=== PATIENT | male | born 1995 | race Caucasian/White ===

== ENCOUNTER 2016-09-12 21:34 | Inpatient (IN) | payer OTHER ==
--- NOTE | 2016-09-12 21:59 | HP ---
CIWA Score - CIWA Score Nausea/Vomitin-Mild Nausea/No Vomiting Muscle Tremors: 4-Moderate,w/Arms Extend Anxiety: 4-Mod. Anxious/Guarded Agitation: 4-Moderately Restless Paroxysmal Sweats: 1-Minimal Palms Moist Orientation: 3-Disoriented Date>2 days Tacttile Disturbances: 0-None Auditory Disturbances: 0-None Visual Disturbances: 0-None Headache: 2-Mild CIWA-Ar Total Score: 19 Admission ROS [facility] - HPI Chief Complaint: withdrawal sx Allergies/Adverse Reactions: Allergies Allergy/AdvReac Type Severity Reaction Status Date / Time No Known Drug Allergies Allergy Verified 09/12/16 22:51 powered drink Allergy Mild Rash Uncoded 09/12/16 21:57 History of Present Illness: 21 years old male with long history of alcohol k2 marijuana nicotine dependence , history of asthma, has diabetes ii no treatment, patient has alcohol intoxication 09/11/16 treated in ER [facility] mental illness is admitted to detox Exam Limitations: No Limitations - Ebola screening Have you traveled outside of the country in the last 21 days: No Have you had contact with anyone from an Ebola affected area: No Have you been sick,other than usual withdrawal symptoms: No Do you have a fever: No - Review of Systems Constitutional: Chills, Loss of Appetite, Changes in sleep, Unintentional Wgt. Loss, Unexplained wgt Loss EENT: reports: No Symptoms Reported Respiratory: reports: No Symptoms reported Cardiac: reports: No Symptoms Reported GI: reports: Nausea, Poor Appetite, Poor Fluid Intake, Abdominal cramping : reports: No Symptoms Reported Musculoskeletal: reports: Back Pain (sports injury) Integumentary: reports: No Symptoms Reported Neuro: reports: Seizure (09/11/16 seizure treated in ER k2 related), Tremors Endocrine: reports: No Symptoms Reported Hematology: reports: No Symptoms Reported Psychiatric: reports: Judgement Intact, Mood/Affect Appropiate Other Systems: Reviewed and Negative Patient History - Patient Medical History Hx Anemia: No Hx Asthma: Yes (no treatment) Hx Chronic Obstructive Pulmonary Disease (COPD): No Hx Cancer: No Hx Cardiac Disorders: No Hx Congestive Heart Failure: No Hx Hypertension: No Hx Hypercholesterolemia: No Hx Pacemaker: No HX Cerebrovascular Accident: No Hx Seizures: Yes Hx Dementia: No Hx Diabetes: Yes Hx Gastrointestinal Disorders: No Hx Liver Disease: No Hx Genitourinary Disorders: No Hx Sexually Transmitted Disorders: No Hx Renal Disease (ESRD): No Hx Thyroid Disease: No Hx Human Immunodeficiency Virus (HIV): No Hx Hepatitis C: No Hx Depression: No Hx Suicide Attempt: No Hx Bipolar Disorder: No Hx Schizophrenia: No - Patient Surgical History Past Surgical History: Yes Other Surgical History: colonoscopy 2015 hemodectomy Anesthesia Reaction: No - PPD History Previous Implant?: Yes Documented Results: Negative w/o proof Implanted On Prior R Admission?: No PPD to be Administered?: Yes - Smoking Cessation Smoking history: Current every day smoker Have you smoked in the past 12 months: Yes Aproximately how many cigarettes per day: 20 Cigars Per Day: 0 Hx Chewing Tobacco Use: No Initiated information on smoking cessation: Yes 'Breaking Loose' booklet given: 09/12/16 - Substance & Tx. History Hx Alcohol Use: Yes Hx Substance Use: Yes Substance Use Type: Alcohol, Marijuana Hx Substance Use Treatment: Yes - Substances Abused Alcohol Route: Oral Frequency: Daily Amount used: 8ozx48 beer/ 2pints volka Age of first use: 14 Date of Last Use: 09/11/16 K2 Route: Smoking Frequency: 3-6 times per week Amount used: 4 bags Age of first use: 21 Date of Last Use: 09/11/16 Family Disease History - Family Disease History Family History: Unremarkable Admission Physical Exam [facility] - Physical General Appearance: Yes: Appropriately Dressed, Moderate Distress, Thin, Tremorous, Irritable, Sweating, Anxious HEENTM: Yes: Hearing grossly Normal, Normal ENT Inspection, Normocephalic, Normal Voice Respiratory: Yes: Chest Non-Tender, Lungs Clear, Normal Breath Sounds, No Respiratory Distress, No Accessory Muscle Use Neck: Yes: Supple, Trachea in good position Breast: Yes: Breasts Symetrical Cardiology: Yes: Regular Rhythm, Regular Rate, S1, S2 Abdominal: Yes: Non Tender, Soft Genitourinary: Yes: Within Normal Limits Back: Yes: Normal Inspection Musculoskeletal: Yes: full range of Motion, Gait Steady, Back pain Extremities: Yes: Normal Inspection, Normal Range of Motion, Non-Tender, Tremors Neurological: Yes: Alert, Motor Strength 5/5, Normal Mood/Affect, Normal Response Integumentary: Yes: Warm, Moist Lymphatic: Yes: Within Normal Limits - Diagnostic (1) Alcohol dependence with uncomplicated withdrawal Current Visit: Yes Status: Acute (2) Diabetes mellitus type II, non insulin dependent Current Visit: Yes Status: Chronic Comment: x 1 1/2 years, dietary control (3) Weight loss Current Visit: Yes Status: Acute Comment: glucerna (4) Nicotine dependence Current Visit: Yes Status: Acute Qualifiers: Nicotine product type: cigarettes Substance use status: in withdrawal Qualified Code(s): F17.213 - Nicotine dependence, cigarettes, with withdrawal (5) S/P hemorrhoidectomy Current Visit: Yes Status: Resolved Cleared for Admission S - Detox or Rehab S Level of Care: Medically Managed Detox Regimen/Protocol: Librium
[2016-09-12 22:23] VITALS: BMI 21.1
[2016-09-12] MEDS ORDERED: chlordiazePOXIDE HCL 25 MG CAPSULE PO PRN (22:41)
[2016-09-12] MEDS ORDERED: MENTHOL/PHENOL 1 EACH UD MM PRN (22:41)
[2016-09-12] MEDS ORDERED: IBUPROFEN 400 MG TABLET (FP) PO PRN (22:41)
[2016-09-12] MEDS ORDERED: P-EPHED 60MG/TRIPROLIDI 2.5MG TABLET PO PRN (22:41)
[2016-09-12] MEDS ORDERED: MAG HYDROX/AL HYDROX/SIMETH 30 ML UNIT-DOSE CUP PO PRN (22:41)
[2016-09-12] MEDS ORDERED: LOPERAMIDE HCL 2 MG CAPSULE PO PRN (22:41)
[2016-09-12] MEDS ORDERED: MAGNESIUM CITRATE 300 ML BOTTLE PO PRN (22:41)
[2016-09-12] MEDS ORDERED: hydrOXYzine PAMOATE 50 MG CAPSULE (FP) PO PRN (22:41)
[2016-09-12] MEDS ORDERED: chlordiazePOXIDE HCL 25 MG CAPSULE PO ONE (22:41)
[2016-09-12] MEDS ORDERED: guaiFENesin/D-METHORPHAN HB 10 ML UNIT-DOSE CUPS PO PRN (22:41)
[2016-09-12] MEDS ORDERED: NICOTINE POLACRILEX 4 MG GUM BC PRN (22:41)
[2016-09-12] MEDS ORDERED: MAGNESIUM HYDROX 2400MG/30ML ORAL SUSPENSION 30 ML CUP PO PRN (22:41)
[2016-09-12] MEDS ORDERED: cloNIDine HCL 0.1 MG TABLET PO PRN (22:51)
[2016-09-12] MEDS: chlordiazePOXIDE HCL 25 MG CAPSULE PO SCH (23:03)
[2016-09-13] MEDS: chlordiazePOXIDE HCL 25 MG CAPSULE PO SCH ×4 (05:38→22:11)
--- NOTE | 2016-09-13 09:46 | CONSULT ---
[facility] Psychiatric Consult - Data Date of interview: 09/13/16 Admission source: [facility] Identifying data: First admission to [facility] for this 21 y/o male seeking detox treatment on for alcohol and marijuana (K2) dependence.Patient is single without children,domiciled,unemployed and dependent on his mother for financial support. Substance Abuse History: - Smoking Cessation. Smoking history: Current every day smoker. Have you smoked in the past 12 months: Yes. Aproximately how many cigarettes per day: 20. Cigars Per Day: 0. Hx Chewing Tobacco Use: No. Initiated information on smoking cessation: Yes. 'Breaking Loose' booklet given : 09/12/16. - Substance & Tx. History. Hx Alcohol Use: Yes. Hx Substance Use : Yes. Substance Use Type: Alcohol, Marijuana. Hx Substance Use Treatment: Yes. - Substances Abused. Alcohol. Route: Oral. Frequency: Daily. Amount used: 8ozx48 beer/ 2pints volka. Age of first use: 14. Date of Last Use : 09/11/16. K2. Route: Smoking. Frequency: 3-6 times per week. Amount used: 4 bags. Age of first use: 21. Date of Last Use: 09/11/16. Patient admits to this pattern of substance abuse in this interview. Medical History: Diabetes mellitus,withdrawal-related seizures and a history of hemorrhoidectomy (2015). Psychiatric History: Patient denies. Physical/Sexual Abuse/Trauma History: Patient denies. Mental Status Exam - Mental Status Exam Alert and Oriented to: Time, Place, Person Cognitive Function: Good Patient Appearance: Well Groomed Mood: Nervous, Anxious Affect: Mood Congruent Patient Behavior: Fatigued, Appropriate, Cooperative Speech Pattern: Clear, Appropriate Voice Loudness: Normal Thought Process: Intact, Goal Oriented Thought Disorder: Not Present Hallucinations: Denies Suicidal Ideation: Denies Homicidal Ideation: Denies Insight/Judgement: Fair Sleep: Well Appetite: Good Muscle strength/Tone: Normal Gait/Station: Normal Psychiatric Findings - Problem List ([place] 1, 2,3) (1) Alcohol dependence with uncomplicated withdrawal Current Visit: Yes Status: Acute (2) Nicotine dependence Current Visit: Yes Status: Acute Qualifiers: Nicotine product type: cigarettes Substance use status: in withdrawal Qualified Code(s): F17.213 - Nicotine dependence, cigarettes, with withdrawal (3) Marijuana dependence Current Visit: Yes Status: Acute (4) Diabetes mellitus type II, non insulin dependent Current Visit: Yes Status: Chronic Comment: x 1 1/2 years, dietary control (5) S/P hemorrhoidectomy Current Visit: Yes Status: Resolved - Initial Treatment Plan Initial Treatment Plan: Psychoeducation.Detoxification.Observation.
[2016-09-13 10:08] LABS: MCH 29.1 pg (25.7-33.7); MCHC 33.2 g/dl (32.0-35.9); MEAN CELL VOLUME 87.8 fl (80-96); MEAN PLT VOLUME 9.9 fl (7.5-11.1); PLATELET COUNT 166 K/MM3 (134-434); RDW 13.8 % (11.9-15.9); WHITE BLOOD COUNT 7.1 K/mm3 (4.0-10.0)
[2016-09-13] MEDS: ASPIRIN 81 MG CHEWABLE TABLETS PO SCH (10:10)
[2016-09-13] MEDS: NICOTINE 21 MG/24 HOURS TOPICAL PATCH TD SCH (10:10)
[2016-09-13] MEDS: PRENATAL VITAMINS W/ FOLIC ACID TABLET (FP) PO SCH (10:10)
--- NOTE | 2016-09-13 10:10 | PN ---
[facility] CIWA - CIWA Score Nausea/Vomitin-No Nausea/No Vomiting Muscle Tremors: 4-Moderate,w/Arms Extend Anxiety: 4-Mod. Anxious/Guarded Agitation: 4-Moderately Restless Paroxysmal Sweats: 1-Minimal Palms Moist Orientation: 0-Oriented Tacttile Disturbances: 3-Moderate Itch/Numb/Burn Auditory Disturbances: 0-None Visual Disturbances: 0-None Headache: 0-None Present CIWA-Ar Total Score: 16 [facility] COWS - Scale Resting Pulse: 0= DC 80 or Below Sweatin= Chills/Flushing Pupil Size: 0= Normal to Room Light Bone or Joint Aches: 4=Acute Joint/Muscle Pain Runny Nose/ Eye Tearin= Nasal Congestion GI Upset > 30mins: 1= Stomach Cramp Tremor Observation of Outstretched Hands: 1= Tremor [place], Not Seen Yawning Observation: 1= 1-2x During Session Anxiety or Irritability: 2=Irritable/Anxious Goose Flesh Skin: 0=Smooth Skin [facility] Progress Note (SOAP) Subjective: ANXIETY,CHILLS/SWEATS,HEADACHES. Objective: 09/13/16 10:09 Vital Signs Temperature 97.2 F L 09/13/16 09:39 Pulse Rate 55 L 09/13/16 09:39 Respiratory Rate 18 09/13/16 09:39 Blood Pressure 108/79 09/13/16 09:39 O2 Sat by Pulse Oximetry (%) Laboratory Last Values POC Glucometer 89 UNITS (()) 09/12/16 22:19 OTHER LABS PENDING Assessment: 09/13/16 10:10 WITHDRAWAL SX Plan: CONTINUE DETOX
[2016-09-13 10:29] LABS: ALBUMIN 3.6 g/dl (3.4-5.0); ALK PHOS 64 U/L (45-117); ANION GAP 8 (8-16); BILIRUBIN,TOTAL 0.6 mg/dL (0.2-1.0); CALCIUM 8.9 mg/dL (8.5-10.1); CO2 28 mmol/L (21-32); CREATININE 0.9 mg/dL (0.7-1.3); GLUCOSE,RANDOM 94 mg/dL (74-106); SGOT/AST 13 U/L (15-37); SGPT/ALT 14 U/L (12-78); TOT PROT 6.3 g/dl (6.4-8.2)
[2016-09-13 15:11] LABS: HIV 1 & 2 AB NEGATIVE; HIV 1 AGp24 NEGATIVE
--- NOTE | 2016-09-13 15:18 | EKG ---
Test Reason : Blood Pressure : / mmHG Vent. Rate : 057 BPM Atrial Rate : 057 BPM P-R Int : 158 ms QRS Dur : 084 ms QT Int : 390 ms P-R-T Axes : 028 093 053 degrees QTc Int : 379 ms SINUS BRADYCARDIA WITH SINUS ARRHYTHMIA INCOMPLETE RBBB NO PREVIOUS ECGS AVAILABLE Confirmed by CHRISTOPHER MALIK MD ([id number]) on 09/13/2016 3:18:24 PM Referred By: Confirmed By:CHRISTOPHER MALIK MD
[2016-09-13 18:11] LABS: URINE APPEARANCE CLEAR; URINE BILIRUBIN NEGATIVE (NEGATIVE); URINE BLOOD NEGATIVE (NEGATIVE); URINE COLOR YELLOW; URINE GLUCOSE (UA) NEGATIVE (NEGATIVE); URINE KETONE NEGATIVE (NEGATIVE); URINE LEUK ESTERASE NEGATIVE (NEGATIVE); URINE NITRITE NEGATIVE (NEGATIVE); URINE PROTEIN NEGATIVE (NEGATIVE); URINE UROBILINOGEN NEGATIVE E.U./dl (0.2-1.0)
[2016-09-13] MEDS: diphenhydrAMINE HCL 50 MG CAPSULE PO PRN (22:11)
[2016-09-13] MEDS: THIAMINE HCL 100 MG TABLET (FP) PO SCH (22:11)
[2016-09-13] MEDS: ACETAMINOPHEN 325 MG TABLET (FP) PO PRN (22:13)
[2016-09-14] MEDS: chlordiazePOXIDE HCL 25 MG CAPSULE PO SCH ×3 (06:02→17:30)
[2016-09-14] MEDS: NICOTINE 21 MG/24 HOURS TOPICAL PATCH TD SCH (10:21)
[2016-09-14] MEDS: PRENATAL VITAMINS W/ FOLIC ACID TABLET (FP) PO SCH (10:21)
[2016-09-14] MEDS: ASPIRIN 81 MG CHEWABLE TABLETS PO SCH (11:16)
--- NOTE | 2016-09-14 11:41 | PN ---
[facility] CIWA - CIWA Score Nausea/Vomitin-No Nausea/No Vomiting Muscle Tremors: 3 Anxiety: 3 Agitation: 3 Paroxysmal Sweats: 3 Orientation: 0-Oriented Tacttile Disturbances: 1-Very Mild Itch/Numbness Auditory Disturbances: 0-None Visual Disturbances: 0-None Headache: 0-None Present CIWA-Ar Total Score: 13 [facility] Progress Note (SOAP) Subjective: Anxiety,tremors,sweating,interrupted sleep,restless Objective: 09/14/16 11:39 Vital Signs - 8 hr 09/14/16 09/14/16 09/14/16 03:40 06:39 10:44 Temperature 96 F L 97.0 F L Pulse Rate 73 81 Respiratory 18 16 20 Rate Blood Pressure 91/65 114/72 Laboratory Last Values WBC 7.1 K/mm3 (4.0-10.0) 09/13/16 07:30 RBC 5.10 M/mm3 (4.00-5.60) 09/13/16 07:30 Hgb 14.9 GM/dL (11.7-16.9) 09/13/16 07:30 Hct 44.8 % (35.4-49) 09/13/16 07:30 MCV 87.8 fl (80-96) 09/13/16 07:30 MCHC 33.2 g/dl (32.0-35.9) 09/13/16 07:30 RDW 13.8 % (11.9-15.9) 09/13/16 07:30 Plt Count 166 K/MM3 (134-434) 09/13/16 07:30 MPV 9.9 fl (7.5-11.1) 09/13/16 07:30 Sodium 142 mmol/L (136-145) 09/13/16 07:30 Potassium 3.8 mmol/L (3.5-5.1) 09/13/16 07:30 Chloride 106 mmol/L (98-107) 09/13/16 07:30 Carbon Dioxide 28 mmol/L (21-32) 09/13/16 07:30 Anion Gap 8 (8-16) 09/13/16 07:30 BUN 15 mg/dL (7-18) 09/13/16 07:30 Creatinine 0.9 mg/dL (0.7-1.3) 09/13/16 07:30 Creat Clearance w eGFR > 60 (>60) 09/13/16 07:30 POC Glucometer 92 UNITS (()) 09/14/16 06:03 Random Glucose 94 mg/dL (74-106) 09/13/16 07:30 Calcium 8.9 mg/dL (8.5-10.1) 09/13/16 07:30 Total Bilirubin 0.6 mg/dL (0.2-1.0) 09/13/16 07:30 AST 13 U/L (15-37) L 09/13/16 07:30 ALT 14 U/L (12-78) 09/13/16 07:30 Alkaline Phosphatase 64 U/L (45-117) 09/13/16 07:30 Total Protein 6.3 g/dl (6.4-8.2) L 09/13/16 07:30 Albumin 3.6 g/dl (3.4-5.0) 09/13/16 07:30 Urine Color Yellow 09/13/16 14:00 Urine Appearance Clear 09/13/16 14:00 Urine pH 6.0 (5.0-8.0) 09/13/16 14:00 Ur Specific [place] 1.018 (1.001-1.035) 09/13/16 14:00 Urine Protein Negative (NEGATIVE) 09/13/16 14:00 Urine Glucose (UA) Negative (NEGATIVE) 09/13/16 14:00 Urine Ketones Negative (NEGATIVE) 09/13/16 14:00 Urine Blood Negative (NEGATIVE) 09/13/16 14:00 Urine Nitrite Negative (NEGATIVE) 09/13/16 14:00 Urine Bilirubin Negative (NEGATIVE) 09/13/16 14:00 Urine Urobilinogen Negative E.U./dl (0.2-1.0) 09/13/16 14:00 Ur Leukocyte Esterase Negative (NEGATIVE) 09/13/16 14:00 RPR Titer Nonreactive (NONREACTIVE) 09/13/16 07:30 Hepatitis C Antibody <0.1 s/co ratio (0.0-0.9) 09/12/16 07:30 HIV 1&2 Antibody Screen Negative 09/12/16 07:30 HIV P24 Antigen Negative 09/12/16 07:30 labs noted Assessment: 09/14/16 11:39 Withdrawal sx. Plan: Continue detox
[2016-09-14] MEDS: THIAMINE HCL 100 MG TABLET (FP) PO SCH (22:16)
[2016-09-14] MEDS: chlordiazePOXIDE 5 MG CAPSULE PO SCH (22:16)
[2016-09-14] MEDS: diphenhydrAMINE HCL 50 MG CAPSULE PO PRN (22:17)
[2016-09-15] MEDS: chlordiazePOXIDE 5 MG CAPSULE PO SCH ×3 (05:53→17:53)
[2016-09-15] MEDS: NICOTINE 21 MG/24 HOURS TOPICAL PATCH TD SCH (10:09)
[2016-09-15] MEDS: ASPIRIN 81 MG CHEWABLE TABLETS PO SCH (10:09)
[2016-09-15] MEDS: PRENATAL VITAMINS W/ FOLIC ACID TABLET (FP) PO SCH (10:10)
[2016-09-15] MEDS: ACETAMINOPHEN 325 MG TABLET (FP) PO PRN (15:01)
--- NOTE | 2016-09-15 15:27 | PN ---
[facility] Progress Note (SOAP) Subjective: Body aches, sweating, nausea, anxious, interrupted sleep Objective: 09/15/16 15:25 Last Vital Signs Temp Pulse Resp BP Pulse Ox 98 F 91 H 18 122/75 09/15/16 14:01 09/15/16 14:01 09/15/16 14:01 09/15/16 14:01 Laboratory Tests 09/12/16 09/12/16 09/12/16 07:30 07:30 22:19 WBC RBC Hgb Hct MCV MCHC RDW Plt Count MPV Sodium Potassium Chloride Carbon Dioxide Anion Gap BUN Creatinine Creat Clearance w eGFR POC Glucometer 89 Random Glucose Calcium Total Bilirubin AST ALT Alkaline Phosphatase Total Protein Albumin Urine Color Urine Appearance Urine pH Ur Specific [place] Urine Protein Urine Glucose (UA) Urine Ketones Urine Blood Urine Nitrite Urine Bilirubin Urine Urobilinogen Ur Leukocyte Esterase RPR Titer Hepatitis C Antibody <0.1 HIV 1&2 Antibody Screen Negative HIV P24 Antigen Negative 09/13/16 09/13/16 09/13/16 07:30 07:30 07:30 WBC 7.1 RBC 5.10 Hgb 14.9 Hct 44.8 MCV 87.8 MCHC 33.2 RDW 13.8 Plt Count 166 MPV 9.9 Sodium 142 Potassium 3.8 Chloride 106 Carbon Dioxide 28 Anion Gap 8 BUN 15 Creatinine 0.9 Creat Clearance w eGFR > 60 POC Glucometer Random Glucose 94 Calcium 8.9 Total Bilirubin 0.6 AST 13 L ALT 14 Alkaline Phosphatase 64 Total Protein 6.3 L Albumin 3.6 Urine Color Urine Appearance Urine pH Ur Specific [place] Urine Protein Urine Glucose (UA) Urine Ketones Urine Blood Urine Nitrite Urine Bilirubin Urine Urobilinogen Ur Leukocyte Esterase RPR Titer Nonreactive Hepatitis C Antibody HIV 1&2 Antibody Screen HIV P24 Antigen 09/13/16 09/14/16 14:00 06:03 WBC RBC Hgb Hct MCV MCHC RDW Plt Count MPV Sodium Potassium Chloride Carbon Dioxide Anion Gap BUN Creatinine Creat Clearance w eGFR POC Glucometer 92 Random Glucose Calcium Total Bilirubin AST ALT Alkaline Phosphatase Total Protein Albumin Urine Color Yellow Urine Appearance Clear Urine pH 6.0 Ur Specific [place] 1.018 Urine Protein Negative Urine Glucose (UA) Negative Urine Ketones Negative Urine Blood Negative Urine Nitrite Negative Urine Bilirubin Negative Urine Urobilinogen Negative Ur Leukocyte Esterase Negative RPR Titer Hepatitis C Antibody HIV 1&2 Antibody Screen HIV P24 Antigen Labs noted Assessment: 09/15/16 15:26 Withdrawal symptoms Plan: Continue detox
[2016-09-15] MEDS: THIAMINE HCL 100 MG TABLET (FP) PO SCH (22:27)
[2016-09-15] MEDS: chlordiazePOXIDE HCL 10 MG CAPSULE PO SCH (22:28)
[2016-09-15] MEDS: diphenhydrAMINE HCL 50 MG CAPSULE PO PRN (22:28)
[2016-09-16] MEDS: chlordiazePOXIDE HCL 10 MG CAPSULE PO SCH (06:00)
[2016-09-16 06:46] VITALS: BP 112/76; PULSE 76; TEMP 95.8
--- NOTE | 2016-09-16 09:42 | DS ---
[facility] Detox Discharge Summary Admission Date: 09/12/16 Discharge Date: 09/16/16 - History Present History: Alcohol Dependence, Cannabis Dependence Pertinent Past History: Type II DM - Physical Exam Results Vital Signs: Vital Signs Temperature 95.8 F L 09/16/16 06:46 Pulse Rate 76 09/16/16 06:46 Respiratory Rate 18 09/16/16 06:46 Blood Pressure 112/76 09/16/16 06:46 O2 Sat by Pulse Oximetry (%) Pertinent Admission Physical Exam Findings: Withdrawal sx. Laboratory Last Values WBC 7.1 K/mm3 (4.0-10.0) 09/13/16 07:30 RBC 5.10 M/mm3 (4.00-5.60) 09/13/16 07:30 Hgb 14.9 GM/dL (11.7-16.9) 09/13/16 07:30 Hct 44.8 % (35.4-49) 09/13/16 07:30 MCV 87.8 fl (80-96) 09/13/16 07:30 MCHC 33.2 g/dl (32.0-35.9) 09/13/16 07:30 RDW 13.8 % (11.9-15.9) 09/13/16 07:30 Plt Count 166 K/MM3 (134-434) 09/13/16 07:30 MPV 9.9 fl (7.5-11.1) 09/13/16 07:30 Sodium 142 mmol/L (136-145) 09/13/16 07:30 Potassium 3.8 mmol/L (3.5-5.1) 09/13/16 07:30 Chloride 106 mmol/L (98-107) 09/13/16 07:30 Carbon Dioxide 28 mmol/L (21-32) 09/13/16 07:30 Anion Gap 8 (8-16) 09/13/16 07:30 BUN 15 mg/dL (7-18) 09/13/16 07:30 Creatinine 0.9 mg/dL (0.7-1.3) 09/13/16 07:30 Creat Clearance w eGFR > 60 (>60) 09/13/16 07:30 POC Glucometer 104 UNITS (()) 09/16/16 06:03 Random Glucose 94 mg/dL (74-106) 09/13/16 07:30 Calcium 8.9 mg/dL (8.5-10.1) 09/13/16 07:30 Total Bilirubin 0.6 mg/dL (0.2-1.0) 09/13/16 07:30 AST 13 U/L (15-37) L 09/13/16 07:30 ALT 14 U/L (12-78) 09/13/16 07:30 Alkaline Phosphatase 64 U/L (45-117) 09/13/16 07:30 Total Protein 6.3 g/dl (6.4-8.2) L 09/13/16 07:30 Albumin 3.6 g/dl (3.4-5.0) 09/13/16 07:30 Urine Color Yellow 09/13/16 14:00 Urine Appearance Clear 09/13/16 14:00 Urine pH 6.0 (5.0-8.0) 09/13/16 14:00 Ur Specific [place] 1.018 (1.001-1.035) 09/13/16 14:00 Urine Protein Negative (NEGATIVE) 09/13/16 14:00 Urine Glucose (UA) Negative (NEGATIVE) 09/13/16 14:00 Urine Ketones Negative (NEGATIVE) 09/13/16 14:00 Urine Blood Negative (NEGATIVE) 09/13/16 14:00 Urine Nitrite Negative (NEGATIVE) 09/13/16 14:00 Urine Bilirubin Negative (NEGATIVE) 09/13/16 14:00 Urine Urobilinogen Negative E.U./dl (0.2-1.0) 09/13/16 14:00 Ur Leukocyte Esterase Negative (NEGATIVE) 09/13/16 14:00 RPR Titer Nonreactive (NONREACTIVE) 09/13/16 07:30 Hepatitis C Antibody <0.1 s/co ratio (0.0-0.9) 09/12/16 07:30 HIV 1&2 Antibody Screen Negative 09/12/16 07:30 HIV P24 Antigen Negative 09/12/16 07:30 Labs noted - Treatment Hospital Course: Detox Protocol Followed, Detoxed Safely, Responded well, Discharged Condition Good Patient has Accepted a Rehab Referral to: Pt. refused all referrals,however pt. was given info for IOP at [facility] - Medication Discharge Medications: Ambulatory Orders NK [No Known Home Medication] 09/12/16 - Diagnosis (1) Alcohol dependence with uncomplicated withdrawal Current Visit: Yes Status: Acute (2) Marijuana dependence Current Visit: Yes Status: Acute (3) Nicotine dependence Current Visit: Yes Status: Acute Qualifiers: Nicotine product type: cigarettes Substance use status: in withdrawal Qualified Code(s): F17.213 - Nicotine dependence, cigarettes, with withdrawal - AMA Did Patient Leave Against Medical Advice: No
== END 2016-09-16 09:10 | disposition home or self-care (01) | DRG 775 ==
LOC: YASAS 21:34 → Y3N 22:29
PROVIDERS: ADMIT Internal Medicine; ATTEND Internal Medicine
PROC: HZ2ZZZZ Detoxification Services for Substance Abuse Treatment (ICD-10-PCS; principal; 2016-09-12)
DX: F10.20 Alcohol dependence, uncomplicated (principal); F12.20 Cannabis dependence, uncomplicated; F17.210 Nicotine dependence, cigarettes, uncomplicated; E11.9 Type 2 diabetes mellitus without complications; J45.909 Unspecified asthma, uncomplicated; Z86.69 Personal history of other diseases of the nervous system and sense organs; Z87.898 Personal history of other specified conditions
CPT/HCPCS: 36415; 80053; 81003; 85027; 86593; 87389; 93005; 93010

== ENCOUNTER 2016-11-18 17:17 | Emergency (ER) | payer OTHER ==
[2016-11-18] MEDS ORDERED: SODIUM CHLORIDE 1,000 ML IV STA ×2 (17:39→17:41)
[2016-11-18] MEDS ORDERED: ONDANSETRON 4 MG/2 ML VIAL IVPB ONE (17:39)
[2016-11-18] MEDS ORDERED: KETOROLAC TROMETHAMINE 30 MG/1 ML VIAL IVPUSH ONE (17:39)
[2016-11-18 17:43] VITALS: TEMP 99.4; BMI 22.7
[2016-11-18] MEDS ORDERED: KETOROLAC TROMETHAMINE 30 MG/1 ML VIAL ONE (17:43)
[2016-11-18] MEDS ORDERED: ONDANSETRON 4 MG/2 ML VIAL ONE (17:43)
--- NOTE | 2016-11-18 17:58 | PDOC ---
History of Present Illness - General History Source: Patient Exam Limitations: No Limitations - History of Present Illness Initial Comments: 11/18/16 17:58 Patient is a 21 male with a significant past medical history of NIDDM who presents to the ED with complaint of cough, chest pain and vomiting since 3 AM. Patient reports chest pain that is dull in nature localized at the mid chest that radiates to the back. Patient states that the chest pain is exacerbated by smoking. Patient reports a dry cough. Patient denies SOB. He denies lightheadedness or vision changes. No sick contact no recent travel. SH: daily smoker 1 pack a day, alcohol and K2 detox in 09/16/16 last K2 use 09/30. Allergies - NKA <Ailyn Vargas - Last Filed: 11/18/16 17:58> <Oracio Watson - Last Filed: 11/18/16 18:42> - General Chief Complaint: Respiratory Stated Complaint: COUGH,VOMITING,CHEST PAIN WITH COUGH Time Seen by Provider: 11/18/16 17:25 Past History <Ailyn Vargas - Last Filed: 11/18/16 17:58> - Past Medical History Anemia: No Asthma: Yes (no treatment) Cancer: No Cardiac Disorders: No CVA: No COPD: No CHF: No Dementia: No Diabetes: Yes GI Disorders: No Disorders: No HTN: No Hypercholesterolemia: No Kidney Stones: No Liver Disease: No Suicide Attempt (Hx): No Seizures: Yes Thyroid Disease: No - Surgical History Abdominal Surgery: No Appendectomy: No Cardiac Surgery: No Cholecystectomy: No Lung Surgery: No Neurologic Surgery: No Orthopedic Surgery: No - Reproductive History Testicular Surgery: No - Psycho/Social/Smoking Cessation Hx Anxiety: No Suicidal Ideation: No Smoking History: Current every day smoker Have you smoked in the past 12 months: No Number of Cigarettes Smoked Daily: 20 Cigars Per Day: 0 Information on smoking cessation initiated: No 'Breaking Loose' booklet given: 09/12/16 Hx Alcohol Use: No Drug/Substance Use Hx: No Substance Use Type: None Hx Substance Use Treatment: Yes <Oracio Watson - Last Filed: 11/18/16 18:42> - Past Medical History Allergies/Adverse Reactions: Allergies Allergy/AdvReac Type Severity Reaction Status Date / Time No Known Drug Allergies Allergy Verified 11/18/16 17:26 powered drink Allergy Mild Rash Uncoded 09/12/16 21:57 Home Medications: Ambulatory Orders Albuterol Sulfate Inhaler - [Ventolin HFA Inhaler -] 1 - 2 inh PO Q4H PRN #1 inhaler 11/18/16 Naproxen [Naprosyn -] 500 mg PO BID PRN #20 tablet 11/18/16 Ondansetron HCl [Zofran] 4 mg PO Q6H PRN #15 tablet 11/18/16 Review of Systems - Review of Systems Able to Perform ROS?: Yes Comments:: 11/18/16 17:59 GENERAL/CONSTITUTIONAL: No fever or chills. No weakness. HEAD, EYES, EARS, NOSE AND THROAT: No change in vision. No ear pain or discharge. No sore throat. CARDIOVASCULAR: (+)chest pain. No shortness of breath. RESPIRATORY: (+)cough. No wheezing, or hemoptysis. GASTROINTESTINAL: (+)vomiting. No nausea, diarrhea or constipation. GENITOURINARY: No dysuria, frequency, or change in urination. MUSCULOSKELETAL: No joint or muscle swelling or pain. No neck or back pain. SKIN: No rash NEUROLOGIC: No headache, vertigo, loss of consciousness, or change in strength/ sensation. ENDOCRINE: No increased thirst. No abnormal weight change. HEMATOLOGIC/LYMPHATIC: No anemia, easy bleeding, or history of blood clots. ALLERGIC/IMMUNOLOGIC: No hives or skin allergy. <Ailyn Vargas - Last Filed: 11/18/16 17:58> *Physical Exam - Vital Signs Last Vital Signs Temp Pulse Resp BP Pulse Ox 99.4 F 109 H 18 132/94 100 11/18/16 17:18 11/18/16 17:18 11/18/16 17:18 11/18/16 17:53 11/18/16 17:18 - Physical Exam Comments: 11/18/16 17:59 GENERAL: Awake, alert, and fully oriented, in no acute distress HEAD: No signs of trauma EYES: PERRLA, EOMI, sclera anicteric, conjunctiva clear ENT: (+)dry mucous membranes. Auricles normal inspection, hearing grossly normal , nares patent, oropharynx clear without exudates. NECK: Normal ROM, supple, no lymphadenopathy, JVD, or masses LUNGS: Breath sounds equal, clear to auscultation bilaterally. No wheezes, and no crackles HEART: (+)Tachycardia. Normal S1 and S2, no murmurs, rubs or gallops ABDOMEN: Soft, nontender, normoactive bowel sounds. No guarding, no rebound. No masses EXTREMITIES: Normal range of motion, no edema. No clubbing or cyanosis. No cords, erythema, or tenderness NEUROLOGICAL: Cranial nerves II through XII grossly intact. Normal speech, normal gait SKIN: Warm, Dry, normal turgor, no rashes or lesions noted. <Ailyn Vargas - Last Filed: 11/18/16 17:58> - Vital Signs Last Vital Signs Temp Pulse Resp BP Pulse Ox 99.4 F 109 H 18 132/94 100 11/18/16 17:18 11/18/16 17:18 11/18/16 17:18 11/18/16 17:53 11/18/16 17:18 <Oracio Watson - Last Filed: 11/18/16 18:42> Heart Score/ECG Review #1 ECG reviewed & interpreted by me at: 17:40 11/18/16 18:03 NSR 120, no std/pavan, normal intervals, QTC 438 msec, right axis deviation <Oracio Watson - Last Filed: 11/18/16 18:42> ED Treatment Course - LABORATORY CBC & Chemistry Diagram: 11/18/16 17:50 11/18/16 17:54 - Medications Given in the ED: ED Medications Discontinued Medications Generic Name Dose Route Start Last Admin Trade Name Freq PRN Reason Stop Dose Admin Ketorolac Tromethamine 30 mg 11/18/16 17:39 11/18/16 17:53 Toradol Injection - IVPUSH 11/18/16 17:40 30 mg ONCE ONE Administration Ondansetron HCl 4 mg 11/18/16 17:39 11/18/16 17:47 Zofran Injection IVPB 11/18/16 17:40 4 mg ONCE ONE Administration <Ailyn Vargas - Last Filed: 11/18/16 17:58> - LABORATORY CBC & Chemistry Diagram: 11/18/16 17:50 11/18/16 17:54 - RADIOLOGY Radiology Studies Ordered: Category Date Time Status CHEST PA & LAT [RAD] Stat Radiology 11/18/16 17:39 Ordered - Medications Given in the ED: ED Medications Discontinued Medications Generic Name Dose Route Start Last Admin Trade Name Lakisha PRN Reason Stop Dose Admin Ketorolac Tromethamine 30 mg 11/18/16 17:39 11/18/16 17:53 Toradol Injection - IVPUSH 11/18/16 17:40 30 mg ONCE ONE Administration Ondansetron HCl 4 mg 11/18/16 17:39 11/18/16 17:47 Zofran Injection IVPB 11/18/16 17:40 4 mg ONCE ONE Administration <Oracio Watson - Last Filed: 11/18/16 18:42> Medical Decision Making - Medical Decision Making 11/18/16 18:03 A portion of this note was documented by scribe services under my direction. I have reviewed the details of the note, within reason, and agree with the documentation with the following case summary and management plan written by me. Patient treated in the ED. Nursing notes are reviewed and incorporated into the medical decision-making. Vital signs reviewed. Peripheral IV access obtained by the nurse, laboratory studies are drawn and sent, reviewed and interpreted by myself. Vital Signs Temp Pulse Resp BP Pulse Ox 99.4 F 109 H 18 132/94 100 11/18/16 17:18 11/18/16 17:18 11/18/16 17:18 11/18/16 17:53 11/18/16 17:18 21-year-old male with past medical history of diabetes, polysubstance abuse including K2 marijuana presents with nausea, vomiting, chest pain, cough since this morning. Patient denies any recent drug use. Reports last K2 used 2 months ago. States that he was feeling generally unwell this morning with persistent cough and body aches. Reports some nausea and vomiting. Denies sick contacts or recent travels. Stated his chest pain is dull and is constant. Not exertional but not positional. Denies family history of cardiac disease in the 20s. I suspect the patient likely has viral syndrome. However, we'll need to rule out occult infections, pneumonia, DKA. Give IV fluids treat symptoms and reassess. 11/18/16 18:35 CBC, BMP 11/18/16 17:50 11/18/16 17:54 CMP Sodium 138 mmol/L (136-145) 11/18/16 17:54 Potassium 4.1 mmol/L (3.5-5.1) 11/18/16 17:54 Chloride 104 mmol/L (98-107) 11/18/16 17:54 Carbon Dioxide 24 mmol/L (22-28) 11/18/16 17:54 Anion Gap 10 (8-16) 11/18/16 17:54 BUN 13 mg/dl (7-18) 11/18/16 17:54 Creatinine 0.9 mg/dl (0.6-1.3) 11/18/16 17:54 Creat Clearance w eGFR > 60 (>60) 11/18/16 17:54 Random Glucose 100 mg/dl (74-106) 11/18/16 17:54 Calcium 10.3 mg/dl (8.4-10.2) H 11/18/16 17:54 Total Bilirubin 0.2 mg/dl (0.2-1.0) 11/18/16 17:54 AST 19 U/L (10-42) 11/18/16 17:54 ALT 11 U/L (10-40) 11/18/16 17:54 Alkaline Phosphatase 70 U/L (32-92) 11/18/16 17:54 Creatine Kinase 121 IU/L (38-174) 11/18/16 17:54 Troponin I < 0.03 ng/ml (0.03-0.50) L 11/18/16 17:54 Total Protein 7.5 g/dl (6.4-8.3) 11/18/16 17:54 Albumin 4.6 g/dl (3.5-5.0) 11/18/16 17:54 Urine Test Results Urine Color Yellow 11/18/16 17:57 Urine Appearance Clear 11/18/16 17:57 Urine pH 5.5 (4.5-8) 11/18/16 17:57 Ur Specific [place] 1.020 (1.005-1.025) 11/18/16 17:57 Urine Protein Negative (NEGATIVE) 11/18/16 17:57 Urine Glucose (UA) Negative (NEGATIVE) 11/18/16 17:57 Urine Ketones Negative (NEGATIVE) 11/18/16 17:57 Urine Blood Negative (NEGATIVE) 11/18/16 17:57 Urine Nitrite Negative (NEGATIVE) 11/18/16 17:57 Urine Bilirubin Negative (NEGATIVE) 11/18/16 17:57 Ur Leukocyte Esterase Negative (NEGATIVE) 11/18/16 17:57 The patient reports feeling better. I suspect that this is bowel syndrome. The patient has been coughing frequently here. Chest x-ray reviewed shows no acute findings. EKG does demonstrate a right axis deviation but no other acute findings (old findings). We'll have the patient follow-up with his primary care physician. Discharge diagnosis: viral syndrome I discussed the physical exam findings, ancillary test results and final diagnoses with the patient. I answered all of the patient's questions. The patient was satisfied with the care received and felt comfortable with the discharge plan and treatment plan. The patient will call their primary care physician within 24 hours to arrange follow-up and will return to the Emergency Department with any new, persistant or worsening symptoms. <Oracio Watson - Last Filed: 11/18/16 18:42> *DC/Admit/Observation/Transfer - Attestations Scribe Attestion: 11/18/16 18:00 Documentation prepared by ALF Alvarado, acting as medical dir for Oracio Watson MD. <Ailyn Vargas - Last Filed: 11/18/16 17:58> - Discharge Dispostion Admit: No <Oracio Watson - Last Filed: 11/18/16 18:42> Diagnosis at time of Disposition: Viral syndrome - Discharge Dispostion Disposition: HOME Condition at time of disposition: Improved - Prescriptions Prescriptions: Naproxen [Naprosyn -] 500 mg PO BID PRN #20 tablet PRN Reason: Pain Albuterol Sulfate Inhaler - [Ventolin HFA Inhaler -] 1 - 2 inh PO Q4H PRN #1 inhaler PRN Reason: Wheezing Ondansetron HCl [Zofran] 4 mg PO Q6H PRN #15 tablet PRN Reason: Nausea - Patient Instructions Printed Discharge Instructions: DI for Viral Syndrome Additional Instructions: Take 2 puffs of albuterol every 4 hours as needed for cough/wheezing. Take 500 mg naproxen every 12 hours as needed for pain/fever. Take 4 mg zofran every 6 hours for nausea. This is likely a viral syndrome. Your chest xray shows no pneumonia at this time. Drink plenty of fluids and rest. You will likely take several days before your symptoms improve. - Post Discharge Activity Work/School Note: Back to Work
[2016-11-18 18:01] LABS: BASOPHIL 1.5 % (0-2.0); EOSINOPHIL 2.5 % (0-4.5); MCH 29.1 pg (25.7-33.7); MCHC 33.8 g/dl (32.0-35.9); MEAN CELL VOLUME 86.2 fl (80-96); MEAN PLT VOLUME 9.6 fl (7.5-11.1); NEUTROPHILS 80.1 % (42.8-82.8); PLATELET COUNT 233 K/MM3 (134-434); RDW 12.9 % (11.9-15.9); WHITE BLOOD COUNT 15.4 K/mm3 (4.0-10.8)
[2016-11-18 18:05] LABS: PH,URINE 5.5 (4.5-8); URINE APPEARANCE Clear; URINE BILIRUBIN Negative (NEGATIVE); URINE BLOOD Negative (NEGATIVE); URINE GLUCOSE (UA) Negative (NEGATIVE); URINE KETONE Negative (NEGATIVE); URINE LEUK ESTERASE Negative (NEGATIVE); URINE NITRITE Negative (NEGATIVE); URINE PROTEIN Negative (NEGATIVE); URINE UROBILINOGEN 0.2 E.U/dl (0.2-1.0)
[2016-11-18 18:06] LABS: URINE COLOR YELLOW
[2016-11-18 18:16] LABS: ALBUMIN 4.6 g/dl (3.5-5.0); ALK PHOS 70 U/L (32-92); ANION GAP 10 (8-16); BILIRUBIN,TOTAL 0.2 mg/dl (0.2-1.0); CALCIUM 10.3 mg/dl (8.4-10.2); CO2 24 mmol/L (22-28); CPK(DFH) 121 IU/L (38-174); CREATININE 0.9 mg/dl (0.6-1.3); GLUCOSE,RANDOM 100 mg/dl (74-106); SGOT/AST 19 U/L (10-42); SGPT/ALT 11 U/L (10-40); TOT PROT 7.5 g/dl (6.4-8.3)
[2016-11-18 18:28] LABS: TROPONIN I (DFP) < 0.03 ng/ml (0.03-0.50)
[2016-11-18 19:20] VITALS: BP 114/69; PULSE 92
--- NOTE | 2016-11-19 09:03 | EKG ---
Test Reason : Blood Pressure : / mmHG Vent. Rate : 120 BPM Atrial Rate : 120 BPM P-R Int : 140 ms QRS Dur : 080 ms QT Int : 310 ms P-R-T Axes : 072 [id number] 037 degrees QTc Int : 438 ms SINUS TACHYCARDIA POSSIBLE LEFT ATRIAL ENLARGEMENT RIGHT AXIS DEVIATION Minimal RVCD WHEN COMPARED WITH ECG OF 12-SEP-2016 23:11, VENT. RATE HAS INCREASED BY 63 BPM T WAVE AMPLITUDE HAS DECREASED IN LATERAL LEADS Confirmed by MD KINGS, CHARLY ([id number]) on 11/19/2016 9:03:43 AM Referred By: ESTER Confirmed By:CHARLY KU MD
== END 2016-11-18 19:29 | disposition home or self-care (01) ==
LOC: FER 17:17
PROC: 3E0333Z Introduction of Anti-inflammatory into Peripheral Vein, Percutaneous Approach (ICD-10-PCS; principal; 2016-11-18)
PROC: 3E033GC Introduction of Other Therapeutic Substance into Peripheral Vein, Percutaneous Approach (ICD-10-PCS; 2016-11-18)
PROC: 3E0337Z Introduction of Electrolytic and Water Balance Substance into Peripheral Vein, Percutaneous Approach (ICD-10-PCS; 2016-11-18)
DX: B34.9 Viral infection, unspecified (principal); E11.9 Type 2 diabetes mellitus without complications; F17.210 Nicotine dependence, cigarettes, uncomplicated
CPT/HCPCS: 36415; 71020-TC; 80053; 81003; 82550; 84484; 85025; 93005; 96361; 96374; 96375; 99283-25